=== PATIENT | male | born 2000 | race Hispanic/Latino ===

== ENCOUNTER 2023-09-11 00:19 | Emergency (ER) | payer OTHER, SELFPAY ==
[2023-09-11] MEDS ORDERED: LIDOCAINE 1% 20 ML MDV ONE (02:21)
--- NOTE | 2023-09-11 02:34 | ER ---
Nurse's Notes [facility] Name: Yazan Wiley Age: 22 yrs Sex: Male : 2000 Arrival Date: 09/11/2023 Time: 00:19 Bed 15 Private MD: Diagnosis: Sebaceous cyst;Infected sebaceous cyst Presentation: 09/11 00:26 Chief complaint: Patient states: ABSCESS TO LEFT SIDE OF ABD. POPPED AND NOW HAS jj7 "STUFF" COMING OUT. Coronavirus screen: At this time, the client does not indicate any symptoms associated with coronavirus-19. Ebola Screen: No symptoms or risks identified at this time. Initial Sepsis Screen: Does the patient meet any 2 criteria? No. Patient's initial sepsis screen is negative. Does the patient have a suspected source of infection? No. Patient's initial sepsis screen is negative. Risk Assessment: Do you want to hurt yourself or someone else? Patient reports no desire to harm self or others. Onset of symptoms was September 11, 2023. 00:26 Method Of Arrival: Ambulatory [facility] 00:26 Acuity: CLARA 4 jj7 Triage Assessment: 00:31 General: Appears in no apparent distress. comfortable, Behavior is calm, cooperative, jj7 appropriate for age. Pain: Denies pain. Derm: LARGE SKIN TAG TO LEFT FLANK AREA. Historical: - Allergies: 00:31 No Known Allergies; jj7 - PMHx: 00:31 None; jj7 - PSHx: 00:31 None; jj7 - Immunization history:: Adult Immunizations up to date. - Social history:: Smoking status: Reported history of juuling and/or vaping. Patient uses alcohol, occasionally. Patient/guardian denies using street drugs. - Family history:: not pertinent. Screenin:35 [facility] ED Fall Risk Assessment (Adult) History of falling in the last 3 months, jj7 including since admission No falls in past 3 months (0 pts) Confusion or Disorientation No (0 pts) Intoxicated or Sedated No (0 pts) Impaired Gait No (0 pts) Mobility Assist Device Used No (0 pt) Altered Elimination No (0 pt) Score/Fall Risk Level 0 - 2 = Low Risk Oriented to surroundings, Maintained a safe environment. Abuse screen: Denies threats or abuse. Nutritional screening: No deficits noted. Tuberculosis screening: No symptoms or risk factors identified. Assessment: 00:35 Reassessment: SEE TRIAGE ASSESSMENT. jj7 01:35 General: Appears in no apparent distress. Behavior is calm, cooperative, appropriate nw1 for age. Neuro: No deficits noted. Cardiovascular: No deficits noted. Respiratory: No deficits noted. GI: No deficits noted. Derm: Skin has lesions on skin tag noted on left back Reports skin tag. Vital Signs: 00:26 BP 149 / 93; Pulse 93; Resp 17; Temp 98.1; Pulse Ox 100% ; Weight 84.37 kg; Height 6 j7 ft. 0 in. ; Pain 0/10; 00:26 Body Mass Index 25.23 (84.37 kg, 182.88 cm) jj7 00:26 Pain Scale: Adult j7 Conway Coma Score: 02:41 Eye Response: spontaneous(4). Motor Response: obeys commands(6). Verbal Response: nw1 oriented(5). Total: 15. ED Course: 00:24 Patient arrived in ED. gm2 00:28 Jc David MD is Attending Physician. sp4 00:31 Triage completed. jj7 00:31 Arm band placed on right wrist. jj7 00:35 Patient has correct armband on for positive identification. jj7 01:31 Edith Philippe, PRABHJOT is Primary Nurse. nw1 01:35 Provided Education on: POC. nw1 02:41 Assist provider with I \\T\\ D: of an abscess on left Set up I\\T\\D tray. Performed by Jc nw 1 Joann MERRITT Dressing with ABD pad, tape Patient tolerated well. Patient did not have IV access during this emergency room visit. Administered Medications: 02:10 Drug: Lidocaine Infiltration (1 %) 20 ml 20 ml Infiltration once; to bedside Volume: 20 bp ml; Route: Infiltration; Medication: 00:35 VIS not applicable for this client. jj7 Outcome: 02:34 Discharge ordered by . sp4 02:41 Discharged to home ambulatory, nw1 02:41 Condition: good 02:41 Discharge instructions given to patient, Instructed on discharge instructions, Demonstrated understanding of instructions, 02:42 Patient left the ED. nw1 Signatures: Giovani Gavin RN RN Ronni Skelton RN RN jj7 Jc David MD MD sp4 Chelsea Burton gm2 Edith Philippe RN RN nw1
--- NOTE | 2023-09-11 02:34 | EDPHYS ---
Physician Documentation [facility] Name: Yazan Wiley Age: 22 yrs Sex: Male : 2000 Arrival Date: 09/11/2023 Time: 00:19 Bed 15 Private MD: ED Physician Jc David HPI: 09/11 00:28 This 22 yrs old Male presents to ER via Unassigned with complaints of Abscess. sp4 05:33 Patient presents complaining of a draining cyst on his left flank that has been there sp4 for the past several months with begun draining today.. . Historical: - Allergies: 00:31 No Known Allergies; jj7 - PMHx: 00:31 None; jj7 - PSHx: 00:31 None; jj7 - Immunization history:: Adult Immunizations up to date. - Social history:: Smoking status: Reported history of juuling and/or vaping. Patient uses alcohol, occasionally. Patient/guardian denies using street drugs. - Family history:: not pertinent. ROS: 05:33 Constitutional: Negative for fever, chills, and weight loss, Skin: Negative for injury, sp4 rash, and discoloration, positive draining cyst to the left flank 05:33 All other systems are negative, Exam: 05:33 Constitutional: This is a well developed, well nourished patient who is awake, alert, sp4 and in no acute distress. Head/Face: Normocephalic, atraumatic. Eyes: Pupils equal round and reactive to light, extra-ocular motions intact. Lids and lashes normal. Conjunctiva and sclera are not injected. Cornea within normal limits. Periorbital areas with no swelling, redness, or edema. ENT: Nares patent. No nasal discharge, no septal abnormalities noted. Tympanic membranes are normal and external auditory canals are clear. Oropharynx with no redness, swelling, or masses, exudates, or evidence of obstruction, uvula midline. Mucous membranes moist. Neck: Trachea midline, no thyromegaly or masses palpated, and no cervical lymphadenopathy. Supple, full range of motion without nuchal rigidity, or vertebral point tenderness. Chest/axilla: Normal chest wall appearance and motion. Nontender with no deformity. No lesions are appreciated. Cardiovascular: Regular rate and rhythm with a normal S1 and S2. No gallops, murmurs, or rubs. Normal PMI, no JVD. No pulse deficits. Respiratory: Lungs have equal breath sounds bilaterally, clear to auscultation and percussion. No rales, rhonchi or wheezes noted. No increased work of breathing, no retractions or nasal flaring. Abdomen/GI: Soft, non-tender, with normal bowel sounds. No distension or tympany. No guarding or rebound. No evidence of tenderness throughout. Back: No spinal tenderness. No costovertebral tenderness. Skin: Warm, dry with normal turgor. Normal color with no rashes, no lesions, and no evidence of cellulitis. Positive infected appearing sebaceous cyst moderate size left flank with conspicuous appearance MS/ Extremity: Pulses equal, no cyanosis. Neurovascular intact. Full, normal range of motion. Neuro: Awake and alert, GCS 15, oriented to person, place, time, and situation. Cranial nerves II-XII grossly intact. Motor strength 5/5 in all extremities. Sensory grossly intact. Psych: Awake, alert, with orientation to person, place and time. Behavior, mood, and affect are within normal limits Vital Signs: 00:26 BP 149 / 93; Pulse 93; Resp 17; Temp 98.1; Pulse Ox 100% ; Weight 84.37 kg; Height 6 jj7 ft. 0 in. ; Pain 0/10; 00:26 Body Mass Index 25.23 (84.37 kg, 182.88 cm) [facility] Scale: [facility] Coma Score: 02:41 Eye Response: spontaneous(4). Motor Response: obeys commands(6). Verbal Response: nw1 oriented(5). Total: 15. Procedures: 02:31 I \T\ D: Incision and drainage was performed for an abscess of the left Left flank sp4 moderate size sebaceous cyst Prepped with Betadine, Anesthetized with 20 ml's 1% Lidocaine. Incised with #15 blade. Drained moderate amount purulent fluid. sebaceous material Dressing: sterile 4x4 gauze, the patient tolerated the procedure well, entire sebaceous cyst was resected and resultant incision was sutured with Silk 3-0 5 sutures , wound care instructions provided . MDM: 00:30 Patient medically screened. sp4 05:33 Differential diagnosis: abscess, allergic reaction, cellulitis, insect bite. Data sp4 reviewed: vital signs, nurses notes. ED course: Sebaceous cyst that was completely resected along with bolus sebaceous material. The resulting incision was sutured with 3-0 silk sutures with good cosmetic effect.. 09/11 02:01 Order name: Dressing - Wound; Complete Time: 02:10 sp4 09/11 02:01 Order name: Gloves, Sterile; Complete Time: 02:10 sp4 09/11 02:01 Order name: Setup Suture Tray; Complete Time: 02:10 sp4 09/11 02:31 Order name: Wound Care sp4 09/11 02:31 Order name: Wound dressing sp4 Administered Medications: 02:10 Drug: Lidocaine Infiltration (1 %) 20 ml 20 ml Infiltration once; to bedside Volume: 20 bp ml; Route: Infiltration; Disposition Summary: 09/11/23 02:34 Discharge Ordered Problem: new sp4 Symptoms: have improved sp4 Condition: Stable sp4 Diagnosis - Sebaceous cyst sp4 - Infected sebaceous cyst sp4 Followup: sp4 - With: Private Physician - When: As needed - Reason: Discharge Instructions: - Discharge Summary Sheet sp4 - Epidermoid Cyst, [id number] sp4 Forms: - Patient Portal Instructions sp4 Signatures: Giovani Gavin RN RN Ronni Skelton RN RN jj7 Jc David MD MD sp4
[2023-09-11 02:48] VITALS: BP 149/93; TEMP 98.1; O2SAT 100
== END 2023-09-11 02:42 | disposition home or self-care (01) ==
LOC: ER 00:19
PROC: 0H97XZZ Drainage of Abdomen Skin, External Approach (ICD-10-PCS; principal; 2023-09-11)
DX: L72.3 Sebaceous cyst (principal)
CPT/HCPCS: 99283; J2001